=== PATIENT | female | born 1940 | race Caucasian/White ===

== ENCOUNTER 2016-09-14 16:30 | Emergency (ER) | payer MEDICARE, OTHER ==
[2016-09-14 17:28] LABS: BASOPHILS 0.5 %; BASOPHILS ABSOLUTE 0.04 10/3/uL (0.0-0.16); EOSINOPHILS 5.5 %; EOSINOPHILS ABSOLUTE 0.48 10/3/uL (0.0-0.53); ER CBC TAT 0 Hrs 05 Mins; HEMATOCRIT 38.1 % (36.0-48.0); HEMOGLOBIN 12.4 g/dL (12.0-16.0); IMMATURE GRANULOCYTES 0.2 %; IMMATURE GRANULOCYTES ABSOLUTE 0.02 10/3/uL (0.0-0.11); LYMPHOCYTES 27.8 %; LYMPHOCYTES ABSOLUTE 2.41 10/3/uL (0.67-4.30); MEAN CORPUS HGB CONC 32.5 g/dL (32.0-36.0); MEAN CORPUSCULAR HEMOGLOB 29.5 pg (26.0-34.0); MEAN CORPUSCULAR VOLUME 90.7 fL (80-100); MEAN PLATELET VOLUME 10.3 fL (9.2-13.0); MONOCYTES 8.5 %; MONOCYTES ABSOLUTE 0.74 10/3/uL (0.21-1.20); NEUTROPHILS 57.5 %; NEUTROPHILS ABSOLUTE 4.99 10/3/uL (2.02-8.40); PLATELET COUNT 254 10/3/uL (150-400); WHITE BLOOD CELLS 8.7 10/3/uL (4.5-10.5)
[2016-09-14 17:29] LABS: MANUAL DIFF NO %
[2016-09-14 17:39] LABS: ASCORBIC ACID (UR NOT ORDER) NEG (NEG); BILIRUBIN, URINE NEGATIVE (NEG); ER URINALYSIS TAT 0 Hrs 16 Mins; KETONE, URINE NEGATIVE (NEG); LEUKOCYTE ESTERASE(NOT OR MOD (NEG); NITRITE (URINE) NEG (NEG); WBC (NOT ORDERED) (RFLEX) 8 (0-5)
[2016-09-14 17:46] LABS: A/G RATIO 1.1 (0.7-1.9); ALBUMIN 3.4 G/DL (3.5-5.0); ALKALINE PHOSPHATASE 127 U/L (45-117); CALCIUM, SERUM 9.6 MG/DL (8.5-10.4); CHLORIDE, SERUM 107 MMOL/L (96-112); CO2 (CARBON DIOXIDE) 30 MMOL/L (24-34); CREATININE 1.11 MG/DL (0.55-1.02); GFR AFRICAN AMERICAN 55 ML/MIN (>=60); GFR NON AFRICAN AMERICAN 48 ML/MIN (>=60); GLOBULIN 3.2 G/DL (2.5-4.1); GLUCOSE, SERUM 82 MG/DL (60-99); SGOT(AST) 14 U/L (5-40); SGPT(ALT) 15 U/L (5-65); SODIUM, SERUM 145 MMOL/L (135-148); TOTAL BILIRUBIN 0.4 MG/DL (0-1.2); TOTAL PROTEIN 6.6 G/DL (6.0-8.5)
[2016-09-14 17:47] LABS: BUN (BLOOD UREA NITROGEN) 15 MG/DL (6-23); POTASSIUM, SERUM 3.9 MMOL/L (3.5-5.3)
[2017-02-17] MEDS ORDERED: CALTRA600D PO (09:02)
[2017-02-17] MEDS ORDERED: VITAMIN B-122500 MCG SL (09:03)
[2017-02-17] MEDS ORDERED: DSS PO (09:03)
[2017-02-17] MEDS ORDERED: VIMPAT200 MG PO (09:04)
[2017-02-17] MEDS ORDERED: VITAMIN D31000 UNIT PO (09:04)
[2017-02-17] MEDS ORDERED: PROTONIX PO (09:04)
[2017-02-17] MEDS ORDERED: KEPPRA500 PO (09:05)
[2017-02-17] MEDS ORDERED: SINGULAIR1 PO (09:05)
[2017-02-17] MEDS ORDERED: ZYRTEC ALLGY10 MG PO (09:05)
[2017-02-17] MEDS ORDERED: MYRBETRIQ25 MG PO (09:06)
[2017-02-17] MEDS ORDERED: X5 PO (09:06)
[2017-02-17] MEDS ORDERED: ASAB PO (09:06)
[2017-02-17] MEDS ORDERED: SYMM100 PO (09:07)
[2017-02-17] MEDS ORDERED: WELCHOL625 MG PO (09:07)
[2017-02-17] MEDS ORDERED: SYMBICORT 160/41 INH INH (09:08)
[2017-02-17] MEDS ORDERED: PROAIR HFA INH (09:08)
[2017-02-17] MEDS ORDERED: DIOV80 PO (09:08)
[2017-02-17] MEDS ORDERED: XALAT OPH (09:09)
[2017-02-17] MEDS ORDERED: LEVOTHYROXIN25 MCG PO (09:21)
== END 2016-09-14 19:03 | disposition home or self-care (01) ==
LOC: ER 16:30
PROVIDERS: Emergency Medicine
DX: M25.552 Pain in left hip (principal); M25.562 Pain in left knee; Z88.0 Allergy status to penicillin; Z88.5 Allergy status to narcotic agent; Z88.1 Allergy status to other antibiotic agents; W19.XXXA Unspecified fall, initial encounter
CPT/HCPCS: 70450; 71010; 73502-LT; 73560-LT; 73610-LT; 80053; 81001; 85025; 87077; 87086; 87186; 99284; A9270-GY